=== PATIENT | female | born 1975 | race Caucasian/White ===

== ENCOUNTER 2019-06-17 10:02 | Emergency (ER) | payer OTHER ==
[~2019-06-17] VITALS: Ht 170.2 cm; Wt 130.2 kg
[2019-06-17 11:33] LABS: BASOPHIL % 0.5 % (0-2); PLATELET COUNT 278 x10^3mcL (130-400); RED CELL DISTRIBUTION WIDTH 13.1 % (11.5-14.5)
[2019-06-17 11:40] LABS: CALCIUM 8.2 mg/dL (8.5-10.1); CARBON DIOXIDE 30.6 mmol/L (21-32); CHLORIDE SERUM 104 mmol/L (98-107); CREATININE SERUM 0.9 mg/dL (0.6-1.0); GFR1 > 60 mL/min; GLUCOSE SERUM 78 mg/dL (74-106); POTASSIUM SERUM 3.9 mmol/L (3.5-5.1); SODIUM SERUM 140 mmol/L (136-145)
[2019-06-17 11:46] LABS: ALKALINE PHOSPHATASE 58 U/L (46-116); ALT/SGPT 26 U/L (14-59); AST/SGOT 14 U/L (15-37); TOTAL PROTEIN, SERUM 6.9 g/dL (6.4-8.2)
[2019-06-17 11:48] LABS: ALBUMIN 3.2 g/dL (3.4-5.0)
[2019-06-17 12:21] VITALS: BP 99/54
== END 2019-06-17 12:37 | disposition home or self-care (01) ==
LOC: ED 10:02
PROVIDERS: Emergency Medicine
DX: L95.9 Vasculitis limited to the skin, unspecified (principal); J45.909 Unspecified asthma, uncomplicated; Z98.890 Other specified postprocedural states
CPT/HCPCS: 36415; J1885; J7512